=== PATIENT | male | born 1965 | race Caucasian/White ===

== ENCOUNTER 2017-04-14 23:11 | Emergency (ER) | payer BC ==
[2017-04-14] MEDS ORDERED: Morphine 4 MG/ML Syringe IVPUSH PRN (23:23)
[2017-04-14] MEDS ORDERED: Aspirin 81 MG Tab.Chew PO ONE (23:23)
[2017-04-14] MEDS ORDERED: Sodium Chloride 0.9% 10 ML Syringe FLUSH PRN (23:23)
--- NOTE | 2017-04-14 23:30 | EDM.PDOC ---
ED HPI GENERAL MEDICAL PROBLEM - General Chief Complaint: Chest Pain Stated Complaint: [facility] Time Seen by Provider: 04/14/17 23:12 Source of Information: Reports: Patient, EMS History Limitations: Reports: No Limitations - History of Present Illness INITIAL COMMENTS - FREE TEXT/NARRATIVE: The patient presents with chest pain. He says it started as jaw, neck and shoulder pain. It then went to his upper abdomen and then to his chest. It is a sharp pain. Laying down makes it worse. Exertion does not make it worse. He has no shortness of breath with it but the pain is made worse by taking a deep breath. He has no fever, chills, cough, congestion or runny nose. He has no cardiac history. He has no history of HTN, diabetes, and hyper cholesterolemia. He does not smoke. He does have a family history of heart problems. He was watching TV when this started. He did take 2 baby aspirin at home. [facility] did give him fantanyl, morphine and nitro. They would help for awhile and then it would come back. Onset: Sudden Duration: Hour(s): (8pm tonight) Location: Reports: Neck, Chest Quality: Reports: Sharp Severity: Moderate Improves with: Reports: None Worsens with: Reports: Other (Laying flat) Context: Reports: Activity (He was watching TV when this started) Associated Symptoms: Reports: Chest Pain. Denies: Cough, Fever/Chills, Nausea/ Vomiting, Shortness of Breath Treatments FUNDER: Reports: Other (see below) Other Treatments FUNDER: see ambulance report and also aspirin at home Chest Pain Score (Numeric/FACES): 5 - Related Data Allergies Allergy/AdvReac Type Severity Reaction Status Date / Time No Known Allergies Allergy Verified 04/14/17 23:22 Home Meds: Home Meds . [No Known Home Meds] 04/14/17 [History] ED ROS GENERAL - Review of Systems Review Of Systems: See Below Constitutional: Reports: No Symptoms HEENT: Reports: No Symptoms Respiratory: Reports: No Symptoms Cardiovascular: Reports: Chest Pain Endocrine: Reports: No Symptoms GI/Abdominal: Reports: No Symptoms : Reports: No Symptoms Musculoskeletal: Reports: Neck Pain Skin: Reports: No Symptoms ED EXAM, GENERAL - Physical Exam Exam: See Below Exam Limited By: No Limitations General Appearance: Alert, No Apparent Distress Ears: Normal External Exam Nose: Normal Inspection Head: Atraumatic, Normocephalic Neck: Normal Inspection Respiratory/Chest: No Respiratory Distress, Lungs Clear, Normal Breath Sounds Cardiovascular: Regular Rate, Rhythm, No Edema, No Murmur GI/Abdominal: Soft, Non-Tender, No Organomegaly Back Exam: Normal Inspection Extremities: Normal Inspection EKG INTERPRETATION EKG Date: 04/14/17 Time: 11:15 Rhythm: NSR Rate (Beats/Min): 75 [place]: Normal P-Wave: Present QRS: Normal ST-T: Normal QT: Normal Course - Vital Signs Last Recorded V/S: Last Vital Signs Temp 97.5 F 04/14/17 23:16 Pulse 75 04/14/17 23:16 Resp 22 H 04/14/17 23:16 BP 120/74 04/14/17 23:16 Pulse Ox 100 04/14/17 23:16 - Orders/Labs/Meds Orders: Active Orders 24 hr Category Date Time Status Cardiac Monitoring [RC] . DIRECTED Care 04/14/17 23:23 Active EKG 12 Lead [EKG Documentation Completion] [RC] ONETIME Care 04/15/17 02:15 Active EKG Documentation Completion [RC] STAT Care 04/14/17 23:24 Active Oxygen Therapy [RC] PRN Care 04/14/17 23:23 Active Peripheral IV Care [RC] . DIRECTED Care 04/14/17 23:23 Active Chest 1V Frontal [CR] Stat Exams 04/14/17 23:24 Taken Morphine Med 04/14/17 23:23 Active 4 mg IVPUSH Q10M PRN Sodium Chloride 0.9% [Saline Flush] Med 04/14/17 23:23 Active 10 ml FLUSH ASDIRECTED PRN Peripheral IV Insertion Adult [OM.PC] Stat Oth 04/14/17 23:23 Ordered Medication Orders Morphine Sulfate (Morphine) 4 mg IVPUSH Q10M PRN PRN Reason: Chest Pain Stop: 04/15/17 23:23 Last Admin: 04/14/17 23:31 Dose: 4 mg Sodium Chloride (Saline Flush) 10 ml FLUSH ASDIRECTED PRN PRN Reason: Keep Vein Open Last Admin: 04/14/17 23:32 Dose: 10 ml Labs: Laboratory Tests 04/14/17 04/14/17 04/14/17 Range/Units 23:16 23:16 23:16 WBC 11.15 H (4.23-9.07) K/mm3 RBC 4.63 (4.63-6.08) M/mm3 Hgb 14.7 (13.7-17.5) gm/L Hct 43.4 (40.1-51.0) % MCV 93.7 H (79.0-92.2) fl MCH 31.7 (25.7-32.2) pg MCHC 33.9 (32.2-35.5) g/dl RDW Std Deviation 43.7 (35.1-43.9) fL Plt Count 178 (163-337) K/mm3 MPV 11.0 (9.4-12.3) fl Neut % (Auto) 74.6 H (34.0-67.9) % Lymph % (Auto) 16.5 L (21.8-53.1) % [place] % (Auto) 7.3 (5.3-12.2) % Eos % (Auto) 1.1 (0.8-7.0) Baso % (Auto) 0.3 (0.1-1.2) % Neut # (Auto) 8.33 H (1.78-5.38) K/mm3 Lymph # (Auto) 1.84 (1.32-3.57) K/mm3 [place] # (Auto) 0.81 (0.30-0.82) K/mm3 Eos # (Auto) 0.12 (0.04-0.54) K/mm3 Baso # (Auto) 0.03 (0.01-0.08) K/mm3 D-Dimer, Quantitative < 0.19 L (0.19-0.59) mg/L Sodium 139 (136-145) mEq/L Potassium 3.6 (3.5-5.1) mEq/L Chloride 105 (98-107) mEq/L Carbon Dioxide 28 (21-32) mEq/L Anion Gap 9.6 (5-15) BUN 14 (7-18) mg/dL Creatinine 1.2 (0.7-1.3) mg/dL Est Cr Clr Drug Dosing 75.82 mL/min Estimated GFR (MDRD) > 60 (>60) mL/min BUN/Creatinine Ratio 11.7 L (14-18) Glucose 120 H (74-106) mg/dL Calcium 8.5 (8.5-10.1) mg/dL Total Bilirubin 0.3 (0.2-1.0) mg/dL AST 17 (15-37) U/L ALT 31 (16-63) U/L Alkaline Phosphatase 75 (46-116) U/L Troponin I < 0.017 (0.00-0.056) ng/mL Total Protein 7.0 (6.4-8.2) g/dl Albumin 3.4 (3.4-5.0) g/dl Globulin 3.6 gm/dL Albumin/Globulin Ratio 0.9 L (1-2) 04/15/17 Range/Units 02:15 WBC (4.23-9.07) K/mm3 RBC (4.63-6.08) M/mm3 Hgb (13.7-17.5) gm/L Hct (40.1-51.0) % MCV (79.0-92.2) fl MCH (25.7-32.2) pg MCHC (32.2-35.5) g/dl RDW Std Deviation (35.1-43.9) fL Plt Count (163-337) K/mm3 MPV (9.4-12.3) fl Neut % (Auto) (34.0-67.9) % Lymph % (Auto) (21.8-53.1) % [place] % (Auto) (5.3-12.2) % Eos % (Auto) (0.8-7.0) Baso % (Auto) (0.1-1.2) % Neut # (Auto) (1.78-5.38) K/mm3 Lymph # (Auto) (1.32-3.57) K/mm3 [place] # (Auto) (0.30-0.82) K/mm3 Eos # (Auto) (0.04-0.54) K/mm3 Baso # (Auto) (0.01-0.08) K/mm3 D-Dimer, Quantitative (0.19-0.59) mg/L Sodium (136-145) mEq/L Potassium (3.5-5.1) mEq/L Chloride (98-107) mEq/L Carbon Dioxide (21-32) mEq/L Anion Gap (5-15) BUN (7-18) mg/dL Creatinine (0.7-1.3) mg/dL Est Cr Clr Drug Dosing mL/min Estimated GFR (MDRD) (>60) mL/min BUN/Creatinine Ratio (14-18) Glucose (74-106) mg/dL Calcium (8.5-10.1) mg/dL Total Bilirubin (0.2-1.0) mg/dL AST (15-37) U/L ALT (16-63) U/L Alkaline Phosphatase (46-116) U/L Troponin I < 0.017 (0.00-0.056) ng/mL Total Protein (6.4-8.2) g/dl Albumin (3.4-5.0) g/dl Globulin gm/dL Albumin/Globulin Ratio (1-2) Meds: Medications Generic Name Dose Route Start Last Admin Trade Name Freq PRN Reason Stop Dose Admin Morphine Sulfate 4 mg 04/14/17 23:23 04/14/17 23:31 Morphine IVPUSH 04/15/17 23:23 4 mg Q10M PRN Administration Chest Pain Sodium Chloride 10 ml 04/14/17 23:23 04/14/17 23:32 Saline Flush FLUSH 10 ml ASDIRECTED PRN Administration Keep Vein Open Discontinued Medications Generic Name Dose Route Start Last Admin Trade Name Freq PRN Reason Stop Dose Admin Aspirin 162 mg 04/14/17 23:23 04/14/17 23:31 Aspirin PO 04/14/17 23:24 162 mg ONETIME ONE Administration Ketorolac Tromethamine 30 mg 04/15/17 00:16 04/15/17 00:21 Toradol IVPUSH 04/15/17 00:17 30 mg ONETIME ONE Administration - Re-Assessments/Exams Free Text/Narrative Re-Assessment/Exam: 04/14/17 23:30 I ordered oxygen PRN, IV saline lock, EKG, CXR, labs, 162mg of aspirin and some morphine. His EKG shows a NSR with no acute changes. 04/15/17 03:38 His CXR looks good. His CBC and CMP look good. His troponin are negative. He has pain with breathing. I feel this is pleurisy. I ordered some toradol 30mg IV and repeat troponin and EKG at 3 hours. His repeat troponin is negative and his repeat EKG looks good. This is pleurisy. I will discharge him home. Departure - Departure Time of Disposition: 03:40 Disposition: Home, Self-Care 01 Condition: Good Clinical Impression: Pleurisy Referrals: Mady Fish PA [Physician Dianeticist] - 1 Week Forms: ED Department Discharge Additional Instructions: Take motrin or aleve for the pain. Follow up with Mady Fish and please return if you are worse. - My Orders Last 24 Hours: My Active Orders 04/14/17 23:23 Cardiac Monitoring [RC] . DIRECTED Oxygen Therapy [RC] PRN Peripheral IV Care [RC] . DIRECTED Morphine 4 mg IVPUSH Q10M PRN Sodium Chloride 0.9% [Saline Flush] 10 ml FLUSH ASDIRECTED PRN Peripheral IV Insertion Adult [OM.PC] Stat 04/14/17 23:24 EKG Documentation Completion [RC] STAT Chest 1V Frontal [CR] Stat 04/15/17 02:15 EKG 12 Lead [EKG Documentation Completion] [RC] ONETIME - Assessment/Plan Last 24 Hours: My Active Orders 04/14/17 23:23 Cardiac Monitoring [RC] . DIRECTED Oxygen Therapy [RC] PRN Peripheral IV Care [RC] . DIRECTED Morphine 4 mg IVPUSH Q10M PRN Sodium Chloride 0.9% [Saline Flush] 10 ml FLUSH ASDIRECTED PRN Peripheral IV Insertion Adult [OM.PC] Stat 04/14/17 23:24 EKG Documentation Completion [RC] STAT Chest 1V Frontal [CR] Stat 04/15/17 02:15 EKG 12 Lead [EKG Documentation Completion] [RC] ONETIME
[2017-04-14 23:46] VITALS: BP 120/74
[2017-04-15] MEDS ORDERED: Ketorolac 30 MG/ML SDV IVPUSH ONE (00:16)
--- NOTE | 2017-04-15 13:36 | CR ---
Chest: Frontal view of the chest was obtained. Comparison: No previous study. Heart size is at the upper limits of normal. Tortuous thoracic aorta is seen. Lungs are clear. Bony structures are grossly intact. Impression: 1. Nothing acute is seen on frontal chest x-ray. Diagnostic code #1
== END 2017-04-15 05:50 | disposition home or self-care (01) ==
LOC: JD.ED 23:11
DX: R09.1 Pleurisy (principal)
CPT/HCPCS: 36415; 71010; 80053; 84484; 85025; 85379; 93005; 96374; 96375; 99285; A9270; J1885; J2270; J7050; 99284

== ENCOUNTER 2019-01-06 07:36 | Day surgery (SDC) | payer BC ==
[~2019-01-06 07:36] MED LIST: Tropicamide 0.5% Ophth Soln 15 ML Bottle EYELF SCH
--- NOTE | 2019-01-06 07:58 | PCM.PREANE ---
Preanesthetic Assessment - Anesthesia/Transfusion/Family Hx Anesthesia History: Prior Anesthesia Without Reaction Family History of Anesthesia Reaction: No Transfusion History: No Prior Transfusion(s) - Review of Systems General: No Symptoms Pulmonary: No Symptoms Cardiovascular: No Symptoms Gastrointestinal: No Symptoms Neurological: No Symptoms Other: Reports: None - Physical Assessment NPO Status Date: 01/05/19 NPO Status Time: 23:00 Pulse: 61 O2 Sat by Pulse Oximetry: 96 Respiratory Rate: 17 Blood Pressure: 137/86 Temperature: 97.8 C ASA Class: 1 Mental Status: Alert & Oriented x3 Airway Class: Mallampati = 2 Dentition: Reports: Normal Dentition Thyro-Mental Finger Breadths: 3 Mouth Opening Finger Breadths: 3 ROM/Head Extension: Full Lungs: Clear to Auscultation, Normal Respiratory Effort Cardiovascular: Regular Rate, Regular Rhythm - Allergies Allergies/Adverse Reactions: Allergies Allergy/AdvReac Type Severity Reaction Status Date / Time No Known Allergies Allergy Verified 01/05/19 13:27 - Acknowledgements Anesthesia Type Planned: MAC Pt an Appropriate Candidate for the Planned Anesthesia: Yes Alternatives and Risks of Anesthesia Discussed w Pt/Guardian: Yes Pt/Guardian Understands and Agrees with Anesthesia Plan: Yes PreAnesthesia Questionnaire - Past Health History Medical/Surgical History: Denies Medical/Surgical History HEENT History: Reports: Cataract Cardiovascular History: Reports: High Cholesterol Respiratory History: Reports: None Gastrointestinal History: Reports: None Genitourinary History: Reports: None Musculoskeletal History: Reports: None Neurological History: Reports: None Psychiatric History: Reports: None Endocrine/Metabolic History: Reports: None Hematologic History: Reports: None - Past Surgical History HEENT Surgical History: Reports: Cataract Surgery, Tonsillectomy GI Surgical History: Reports: Colonoscopy - SUBSTANCE USE Smoking Status *Q: Never Smoker - HOME MEDS Home Medications: Home Meds Aspirin [Halfprin] 81 mg PO DAILY 01/05/19 [History] Rosuvastatin Calcium 5 mg PO DAILY 01/05/19 [History] - CURRENT (IN HOUSE) MEDS Current Meds: Current Medications Brimonidine Tartrate (Alphagan 0.2% Ophth Soln) 0 ml EYELF ASDIRECTED RACQUEL Stop: 01/06/19 23:00 Cefuroxime Sodium (Zinacef) 0 mg EYELF ASDIRECTED RACQUEL Stop: 01/06/19 23:00 Lidocaine HCl (Xylocaine-Mpf 1%) 0 ml INJECT ASDIRECTED RACQUEL Stop: 01/06/19 23:00 Phenylephrine HCl (Jarred-Synephrine 2.5% Ophth Soln) 0 ml EYELF ASDIRECTED RACQUEL Stop: 01/06/19 23:00 Pilocarpine HCl (Pilocar 4% Ophth Soln) 0 ml EYELF ASDIRECTED RACQUEL Stop: 01/06/19 23:00 Polymyxin/Trimethoprim Sulfate (Polytrim Ophth Soln) 0 ml EYELF ASDIRECTED RACQUEL Stop: 01/06/19 23:00 Tetracaine HCl (Tetracaine 0.5% Steri-Unit [place]) 0 ml EYELF ASDIRECTED RACQUEL Stop: 01/06/19 23:00 Tropicamide (Mydriacyl 0.5% Ophth Soln) 0 ml EYELF ASDIRECTED RACQUEL Stop: 01/06/19 23:00
[2019-01-06] MEDS: Polymyxin B/Trimethoprim 10 ML Bottle EYELF SCH ×4 (08:00→09:59)
[2019-01-06] MEDS: Brimonidine 0.2% Ophth Soln 5 ML Bottle EYELF SCH ×4 (08:05→09:59)
[2019-01-06] MEDS: Phenylephrine 2.5% Ophth Soln 2 ML Bot EYELF SCH ×6 (08:10→09:44)
[2019-01-06] MEDS: Tropicamide 1% Ophth Soln 15 ML Bottle EYELF SCH ×3 (08:25→09:27)
[2019-01-06] MEDS: Tetracaine HCl/PF 0.5% 4 ML Bottle EYELF SCH ×3 (09:29→09:50)
[2019-01-06] MEDS: Lidocaine 1% PF 2 ML SDV INJECT SCH ×2 (09:29→09:49)
[2019-01-06] MEDS: Cefuroxime 10 MG/ML SYRINGE EYELF SCH ×2 (09:29→09:58)
[2019-01-06] MEDS: Pilocarpine 4% Ophth Soln 15 ML Bot EYELF SCH ×2 (09:30→09:59)
--- NOTE | 2019-01-06 10:05 | PCM48HPAN ---
Post Anesthesia Note - EVALUATION WITHIN 48HRS OF ANESTHETIC Vital Signs in Normal Range: Yes Patient Participated in Evaluation: Yes Respiratory Function Stable: Yes Airway Patent: Yes Cardiovascular Function Stable: Yes Hydration Status Stable: Yes Pain Control Satisfactory: Yes Nausea and Vomiting Control Satisfactory: Yes Mental Status Recovered: Yes Pulse Rate: 62 SaO2: 96 Resp Rate: 16 Temperature: 97.8 C Blood Pressure: 119/72
[2019-01-06 10:12] VITALS: BP 113/65
== END 2019-01-06 10:09 | disposition home or self-care (01) ==
LOC: JD.SDS 07:36
PROVIDERS: ATTEND Ophthalmology
DX: H25.812 Combined forms of age-related cataract, left eye (principal); E78.00 Pure hypercholesterolemia, unspecified; H02.831 Dermatochalasis of right upper eyelid; H02.834 Dermatochalasis of left upper eyelid; Z98.41 Cataract extraction status, right eye; Z96.1 Presence of intraocular lens; Z79.82 Long term (current) use of aspirin; Z79.899 Other long term (current) drug therapy
CPT/HCPCS: 66984; A9270; C1780; J0697; J2001